=== PATIENT | female | born 2000 | race Caucasian/White ===

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

== ENCOUNTER 2021-01-07 22:24 | Emergency (ER) | payer OTHER ==
[~2021-01-07] VITALS: Ht 162.6 cm; Wt 82.8 kg
[~2021-01-07 22:24] MED LIST: ALBU17IN INH; ALBU83IN INH; CEFD1CAP8 PO; PRED20TA PO
[2021-01-07] MEDS ORDERED: ARNU1INH3 (22:40)
[2021-01-07] MEDS ORDERED: PRED10TA2 (22:40)
[2021-01-07] MEDS ORDERED: ALBU8.5H (22:40)
[2021-01-07] MEDS ORDERED: MONT10TA10 (22:40)
[2021-01-07] MEDS ORDERED: LEVALBUTEROL 1.25 MG/0.5 ML CONCENTRATE NEB NEB PRN (23:35)
[2021-01-07] MEDS ORDERED: methylPREDNISolone 125MG 2ML VIAL IV ONE (23:35)
[2021-01-08 00:42] LABS: BASO # 0.2 10^3/uL (0.0-0.2); BASO % 0.9 % (0.0-1.0); EOS # 1.9 10^3/uL (0.0-0.5); EOS % 9.7 % (0.0-3.0); HEMATOCRIT 45.6 % (36.0-47.0); HEMOGLOBIN 14.8 g/dl (12.0-15.5); LYMPH # 3.2 10^3/uL (1.5-5.0); MEAN CORPUSCULAR HEMOGLOBIN 27.6 pg (27.0-33.0); MEAN CORPUSCULAR HGB CONC 32.5 g/dl (32.0-36.5); MEAN CORPUSCULAR VOLUME 84.9 fl (80.0-96.0); MONO # 1.5 10^3/uL (0.0-0.8); MONO % 7.7 % (2.0-8.0); NEUTROPHILS # 12.8 10^3/uL (1.5-8.5); NEUTROPHILS % 64.9 % (36.0-66.0); PLATELET COUNT, AUTOMATED 441 10^3/uL (150-450); RED BLOOD COUNT 5.37 10^6/uL (4.00-5.40); VENOUS BASE EXCESS 0.3 (-2.0-2.0); VENOUS O2 SATURATION 81.5 % (60.0-80.0); VENOUS PARTIAL PRESSURE CO2 45.7 mmHg (38.0-50.0); VENOUS PARTIAL PRESSURE O2 43.5 mmHg (30.0-50.0); VENOUS PH 7.373 UNITS (7.330-7.430); VENOUS STANDARD HCO3 24.3 MEQ/L; VENOUS TOTAL CO2 27.4 MEQ/L (24.0-28.0); WHITE BLOOD COUNT 19.7 10^3/uL (4.0-10.0)
[2021-01-08] MEDS ORDERED: PRED20TA PO (01:23)
[2021-01-08] MEDS ORDERED: BREAMIS10 MC (01:23)
[2021-01-08 01:41] VITALS: BP 143/84
--- NOTE | 2021-01-08 09:33 | ECGEPIP ---
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
== END 2021-01-08 01:50 | disposition home or self-care (01) ==
LOC: M ED 22:24
DX: J45.901 Unspecified asthma with (acute) exacerbation (principal); R00.0 Tachycardia, unspecified; Z79.51 Long term (current) use of inhaled steroids
CPT/HCPCS: 80047; 82803; 83735; 84702; 85025; 93005; 94640; 96374; 99284; J2930

== ENCOUNTER 2022-08-05 11:08 | Emergency (ER) | payer OTHER ==
[~2022-08-05] VITALS: Ht 162.6 cm; Wt 72.2 kg
[~2022-08-05 11:08] MED LIST changes: +ALBU2.5V10 INH; +ALBU8.5H; -ALBU83IN INH; +ARNU1INH3; +BREAMIS10 MC; -CEFD1CAP8 PO; +CEFD300C41 PO; +MONT10TA97; +PRED10TA2
[2022-08-05] MEDS ORDERED: IPRA0.00 (11:15)
[2022-08-05] MEDS: COMBIVENT RESPIMAT 100-20MCG INHALER 4GM INH SCH (11:41)
[2022-08-05] MEDS ORDERED: predniSONE 20 MG TAB PO ONE (12:10)
[2022-08-05 13:22] VITALS: O2SAT 92
[2022-08-05 13:23] VITALS: BP 138/77
[2022-08-05] MEDS ORDERED: PRED20TA PO (13:28)
[2022-08-06] MEDS ORDERED: MAGNESIUM SULFATE 1GM/100ML D5W BAG (10MG/ML) As Ordered ONE (10:12)
[2022-08-06] MEDS ORDERED: MONT10TA97 PO (14:45)
[2022-08-06] MEDS ORDERED: IBUP-1764 PO (14:45)
== END 2022-08-05 13:53 | disposition home or self-care (01) ==
LOC: M ED 11:08
DX: J45.901 Unspecified asthma with (acute) exacerbation (principal); Z79.51 Long term (current) use of inhaled steroids; Z79.899 Other long term (current) drug therapy
CPT/HCPCS: 87486; 87581; 87633; 87798; 94640; 99284; J7512

== ENCOUNTER 2022-08-06 10:10 | Inpatient (IN) | payer OTHER ==
[~2022-08-06] VITALS: Ht 180.3 cm; Wt 75.1 kg
[2022-08-06] VITALS (7 sets, daily range): BP systolic 107–143; BP diastolic 52–93
[2022-08-06] MEDS: ENOXAPARIN 40MG/0.4ML SYRINGE (J1650 PER 10MG) SC SCH (09:00)
[~2022-08-06 10:10] MED LIST changes: +IPRA0.00
[2022-08-06] MEDS ORDERED: MAG SULF 1GM/100ML (MAG RUN) 1 GM in IV 1 EA IV ONE ×2 (10:15→10:30)
[2022-08-06] MEDS ORDERED: ALBUTEROL SULFATE 2.5 MG/0.5 ML INH NEB SOLN INH ONE ×2 (10:15→12:05)
[2022-08-06] MEDS ORDERED: IPRATROPIUM 0.02% SOLN 0.5MG 2.5ML NEB INH ONE ×2 (10:15→12:05)
[2022-08-06 10:54] LABS: BASO # 0.1 10^3/uL (0.0-0.2); BASO % 0.5 % (0.0-1.0); EOS # 0.4 10^3/uL (0.0-0.5); EOS % 1.6 % (0.0-3.0); HEMATOCRIT 44.5 % (36.0-47.0); HEMOGLOBIN 13.9 g/dl (12.0-15.5); LYMPH # 3.8 10^3/uL (1.5-5.0); LYMPH % 15.9 % (24.0-44.0); MEAN CORPUSCULAR HEMOGLOBIN 27.6 pg (27.0-33.0); MEAN CORPUSCULAR HGB CONC 31.2 g/dl (32.0-36.5); MEAN CORPUSCULAR VOLUME 88.3 fl (80.0-96.0); MONO % 8.7 % (2.0-8.0); NEUTROPHILS # 17.4 10^3/uL (1.5-8.5); NEUTROPHILS % 72.8 % (36.0-66.0); PLATELET COUNT, AUTOMATED 557 10^3/uL (150-450); RED BLOOD COUNT 5.04 10^6/uL (4.00-5.40); WHITE BLOOD COUNT 23.9 10^3/uL (4.0-10.0)
[2022-08-06 10:56] LABS: MONO # 2.1 10^3/uL (0.0-0.8)
[2022-08-06 11:25] LABS: HCG, SERUM QUALITATIVE NEGATIVE (NEGATIVE)
[2022-08-06 11:33] LABS: ALBUMIN 3.8 GM/DL (3.2-5.2); ALT/SGPT 27 U/L (12-78); BILIRUBIN,DIRECT < 0.1 MG/DL (0.0-0.2); BILIRUBIN,TOTAL 0.2 MG/DL (0.2-1.0); BLOOD UREA NITROGEN 12 MG/DL (7-18); CALCIUM LEVEL 8.9 MG/DL (8.5-10.1); CARBON DIOXIDE LEVEL 29 MEQ/L (21-32); CHLORIDE LEVEL 109 MEQ/L (98-107); GLOMERULAR FILTRATION RATE > 60.0 (>60); GLUCOSE, FASTING 137 MG/DL (70-100); POTASSIUM SERUM 3.9 MEQ/L (3.5-5.1); SODIUM LEVEL 142 MEQ/L (136-145); TOTAL PROTEIN 7.4 GM/DL (6.4-8.2)
[2022-08-06] MEDS ORDERED: KETOROLAC 30 MG/ML 1ML VIAL IV ONE (11:35)
[2022-08-06] MEDS ORDERED: NS 500 ML IV ONE (11:50)
[2022-08-06 11:58] LABS: ABG BASE EXCESS -4.2 (-2.0-2.0); ABG HCO3 23.2 MEQ/L (22.0-26.0); ABG O2 SATURATION 98.8 % (95.0-99.0); ABG PARTIAL PRESSURE CO2 51.8 mmHg (35.0-45.0); ABG PARTIAL PRESSURE O2 136.3 mmHg (75.0-100.0); ABG TOTAL CO2 24.8 MEQ/L (22.0-29.0); ABG pH (ARTERIAL) 7.269 UNITS (7.350-7.450)
[2022-08-06] MEDS ORDERED: MIDAZOLAM INJ 2MG/2ML VIAL (J2250 PER 1MG) IV STA (12:04)
[2022-08-06] MEDS ORDERED: IPRATROPIUM 0.5MG/ALBUTEROL 2.5MG INH SOL UD 3ML (DUONEB) As Ordered ONE (12:07)
[2022-08-06] MEDS ORDERED: AZITHROMYCIN INJ 500 MG, VIAL MATE ADAPTER 1 EACH in D5W 250 ML IV ONE (12:10)
[2022-08-06] MEDS ORDERED: cefTRIAXone SOD 2 GM in D5W MINI-BAG PLUS 50 ML IV ONE (12:10)
[2022-08-06] MEDS: PANTOPRAZOLE 40MG VIAL IV SCH (14:38)
[2022-08-06] MEDS: methylPREDNISolone 125MG 2ML VIAL IV SCH ×2 (14:39→21:52)
[2022-08-06] MEDS ORDERED: IBUP-1764 PO (14:45)
[2022-08-06] MEDS ORDERED: MONT10TA97 PO (14:45)
[2022-08-06] MEDS ORDERED: HOME MED LIST COMPLETE! XX SCH (14:50)
[2022-08-06] MEDS: KCL 20MEQ IN D5/0.45NS 1000ML 1,000 ML IV SCH (15:14)
[2022-08-06] MEDS: IPRATROPIUM 0.5MG/ALBUTEROL 2.5MG INH SOL UD 3ML (DUONEB) NEB SCH ×2 (15:47→19:51)
[2022-08-06 16:09] LABS: ABG HCO3 22.2 MEQ/L (22.0-26.0); ABG O2 SATURATION 98.8 % (95.0-99.0); ABG PARTIAL PRESSURE CO2 45.2 mmHg (35.0-45.0); ABG PARTIAL PRESSURE O2 128.5 mmHg (75.0-100.0); ABG STANDARD HCO3 21.2 MEQ/L (22.0-26.0); ABG TOTAL CO2 23.6 MEQ/L (22.0-29.0)
[2022-08-06] MEDS ORDERED: ALBUTEROL SULFATE 2.5 MG/0.5 ML INH NEB SOLN NEB PRN (16:40)
[2022-08-06 19:24] LABS: ABG BASE EXCESS -5.8 (-2.0-2.0); ABG HCO3 18.7 MEQ/L (22.0-26.0); ABG O2 SATURATION 97.3 % (95.0-99.0); ABG PARTIAL PRESSURE CO2 33.7 mmHg (35.0-45.0); ABG PARTIAL PRESSURE O2 87.2 mmHg (75.0-100.0); ABG STANDARD HCO3 19.7 MEQ/L (22.0-26.0); ABG TOTAL CO2 19.7 MEQ/L (22.0-29.0); ABG pH (ARTERIAL) 7.361 UNITS (7.350-7.450)
[2022-08-06] MEDS ORDERED: ALPRAZolam 0.25 MG TAB PO ONE (20:20)
[2022-08-07] VITALS (9 sets, daily range): BP systolic 110–142; BP diastolic 52–86; O2SAT 96
[2022-08-07 05:08] LABS: HEMATOCRIT 36.5 % (36.0-47.0); MEAN CORPUSCULAR HEMOGLOBIN 27.9 pg (27.0-33.0); MEAN CORPUSCULAR HGB CONC 32.9 g/dl (32.0-36.5); MEAN CORPUSCULAR VOLUME 84.9 fl (80.0-96.0); WHITE BLOOD COUNT 15.2 10^3/uL (4.0-10.0)
[2022-08-07 05:10] LABS: PLATELET COUNT, AUTOMATED 440 10^3/uL (150-450)
[2022-08-07 05:35] LABS: ABG BASE EXCESS -0.3 (-2.0-2.0); ABG HCO3 25.4 MEQ/L (22.0-26.0); ABG O2 SATURATION 98.1 % (95.0-99.0); ABG PARTIAL PRESSURE CO2 45.3 mmHg (35.0-45.0); ABG PARTIAL PRESSURE O2 105.4 mmHg (75.0-100.0); ABG STANDARD HCO3 24.3 MEQ/L (22.0-26.0); ABG TOTAL CO2 26.8 MEQ/L (22.0-29.0); ABG pH (ARTERIAL) 7.366 UNITS (7.350-7.450)
[2022-08-07 05:39] LABS: ALBUMIN 3.2 GM/DL (3.2-5.2); ALT/SGPT 18 U/L (12-78); BILIRUBIN,TOTAL 0.2 MG/DL (0.2-1.0); BLOOD UREA NITROGEN 9 MG/DL (7-18); CALCIUM LEVEL 8.8 MG/DL (8.5-10.1); CARBON DIOXIDE LEVEL 26 MEQ/L (21-32); CHLORIDE LEVEL 110 MEQ/L (98-107); CREATININE FOR GFR 0.58 MG/DL (0.55-1.30); GLOMERULAR FILTRATION RATE > 60.0 (>60); GLUCOSE, FASTING 142 MG/DL (70-100); POTASSIUM SERUM 4.4 MEQ/L (3.5-5.1); SODIUM LEVEL 140 MEQ/L (136-145); TOTAL PROTEIN 6.5 GM/DL (6.4-8.2)
[2022-08-07] MEDS: methylPREDNISolone 125MG 2ML VIAL IV SCH ×2 (05:40→14:03)
[2022-08-07] MEDS: KCL 20MEQ IN D5/0.45NS 1000ML 1,000 ML IV SCH (05:40)
[2022-08-07] MEDS: IPRATROPIUM 0.5MG/ALBUTEROL 2.5MG INH SOL UD 3ML (DUONEB) NEB SCH ×3 (07:32→15:39)
[2022-08-07] MEDS: PANTOPRAZOLE 40MG VIAL IV SCH (08:19)
[2022-08-07] MEDS: ENOXAPARIN 40MG/0.4ML SYRINGE (J1650 PER 10MG) SC SCH (08:19)
[2022-08-07] MEDS: SYMBICORT 160/4.5MCG INHALER 6GM INH SCH ×2 (11:24→19:10)
[2022-08-07] MEDS ORDERED: cefTRIAXone SOD 1 GM in D5W MINI-BAG PLUS 50 ML IV SCH (13:00)
[2022-08-07] MEDS ORDERED: AZITHROMYCIN INJ 500 MG, VIAL MATE ADAPTER 1 EACH in NS 250 ML IV SCH (14:00)
[2022-08-07] MEDS ORDERED: LEVALBUTEROL 1.25 MG/0.5 ML CONCENTRATE NEB INH PRN (16:15)
[2022-08-07] MEDS ORDERED: LEVALBUTEROL 1.25 MG/0.5 ML CONCENTRATE NEB NEB SCH (20:00)
[2022-08-07] MEDS ORDERED: MONTELUKAST 10 MG TAB PO SCH (21:00)
== END 2022-08-07 19:53 | disposition home or self-care (01) | DRG 141 ==
LOC: M ED 10:10 → EDBD 10:10 → M ED INP 13:18 → ENRESERV 13:35 → M ICU 16:23
PROVIDERS: ADMIT Internal Medicine Pulmonary Disease; ATTEND Internal Medicine Pulmonary Disease
DX: J45.901 Unspecified asthma with (acute) exacerbation (principal); J96.02 Acute respiratory failure with hypercapnia; Z20.822 Contact with and (suspected) exposure to COVID-19; Z87.891 Personal history of nicotine dependence; J18.9 Pneumonia, unspecified organism; E87.20 Acidosis, unspecified; Z91.198 Patient's noncompliance with other medical treatment and regimen for other reason; Z79.899 Other long term (current) drug therapy

== ENCOUNTER → 2022-08-16 | Outpatient (REF) | payer OTHER ==
[~2022-08-16] MED LIST changes: +IBUP-1764 PO; +MONT10TA97 PO
[2022-08-16 18:39] LABS: ALBUMIN 3.6 GM/DL (3.2-5.2); ALT/SGPT 26 U/L (12-78); BILIRUBIN,TOTAL 0.2 MG/DL (0.2-1.0); BLOOD UREA NITROGEN 18 MG/DL (7-18); CALCIUM LEVEL 9.1 MG/DL (8.5-10.1); CARBON DIOXIDE LEVEL 30 MEQ/L (21-32); CHLORIDE LEVEL 103 MEQ/L (98-107); CREATININE FOR GFR 0.65 MG/DL (0.55-1.30); GLOMERULAR FILTRATION RATE > 60.0 (>60); GLUCOSE, FASTING 75 MG/DL (70-100); POTASSIUM SERUM 4.8 MEQ/L (3.5-5.1); SODIUM LEVEL 137 MEQ/L (136-145); TOTAL PROTEIN 6.8 GM/DL (6.4-8.2)
[2022-08-16 19:07] LABS: TOTAL 25(OH) VITAMIN D 15.7 NG/ML (30.0-100.0)
== END ==
LOC: M LAB REF 16:54
PROVIDERS: ATTEND Family Medicine Addiction Medicine
DX: F32.A Depression, unspecified (principal)

== ENCOUNTER 2022-12-04 02:07 | Inpatient (IN) | payer OTHER ==
[~2022-12-04] VITALS: Ht 162.6 cm; Wt 74.2 kg
[~2022-12-04 02:07] MED LIST changes: -ALBU8.5H; +ALBU8.5H PO
[2022-12-04] MEDS ORDERED: NS 1,000 ML IV ONE (02:25)
[2022-12-04] MEDS ORDERED: MUCI1TAB16 PO (02:28)
[2022-12-04] MEDS ORDERED: IPRATROPIUM 0.02% SOLN 0.5MG 2.5ML NEB INH ONE (02:45)
[2022-12-04] MEDS ORDERED: ALBUTEROL SULFATE 2.5MG/0.5ML INH NEB SOLN INH ONE ×2 (02:45→03:20)
[2022-12-04] MEDS ORDERED: methylPREDNISolone 125MG 2ML VIAL IV ONE (02:45)
[2022-12-04] MEDS ORDERED: MAG SULF 1GM/100ML (MAG RUN) 1 GM in IV 1 EA IV ONE (02:45)
[2022-12-04] MEDS ORDERED: BUDESONIDE 0.5 MG/2 ML INHALATION SUSPENSION INH ONE (02:45)
[2022-12-04 02:59] LABS: BASO # 0.3 10^3/uL (0.0-0.2); BASO % 1.4 % (0.0-1.0); EOS # 2.7 10^3/uL (0.0-0.5); EOS % 14.4 % (0.0-3.0); HEMATOCRIT 40.9 % (36.0-47.0); HEMOGLOBIN 13.2 g/dl (12.0-15.5); LYMPH # 2.7 10^3/uL (1.5-5.0); LYMPH % 14.2 % (24.0-44.0); MEAN CORPUSCULAR HEMOGLOBIN 28.3 pg (27.0-33.0); MEAN CORPUSCULAR HGB CONC 32.3 g/dl (32.0-36.5); MEAN CORPUSCULAR VOLUME 87.6 fl (80.0-96.0); MONO % 5.1 % (2.0-8.0); NEUTROPHILS % 64.1 % (36.0-66.0); PLATELET COUNT, AUTOMATED 467 10^3/uL (150-450); RED BLOOD COUNT 4.67 10^6/uL (4.00-5.40); WHITE BLOOD COUNT 18.7 10^3/uL (4.0-10.0)
[2022-12-04 03:24] LABS: ETHYL ALCOHOL (ETHANOL) 0.005 % (0.000-0.010)
[2022-12-04 03:25] LABS: ACETAMINOPHEN LEVEL < 2.0 UG/ML (10.0-20.0); CPK CREATINE PHOSPHOKINASE 82 U/L (34-145)
[2022-12-04 03:26] LABS: SALICYLATE LEVEL < 3.0 MG/DL (<30)
[2022-12-04 03:49] LABS: ALBUMIN 3.7 G/DL (3.2-5.2); ALKALINE PHOSPHATASE 90 U/L (46-116); ALT/SGPT 18 U/L (7.0-40); AST/SGOT 18 U/L (<34); BILIRUBIN,DIRECT 0.1 MG/DL (<0.4); BILIRUBIN,TOTAL 0.4 MG/DL (0.3-1.2); BLOOD UREA NITROGEN 6 MG/DL (9-23); CALCIUM LEVEL 8.4 MG/DL (8.5-10.1); CARBON DIOXIDE LEVEL 23 MMOL/L (20-31); CHLORIDE LEVEL 107 MMOL/L (98-107); CREATININE FOR GFR 0.67 MG/DL (0.55-1.30); GLOMERULAR FILTRATION RATE > 60.0 (>60); GLUCOSE, FASTING 216 MG/DL (60-100); POTASSIUM SERUM 4.1 MMOL/L (3.5-5.1); SODIUM LEVEL 139 MMOL/L (136-145); THYROID STIMULATING HORMONE 2.259 uIU/ML (0.55-4.78); TOTAL PROTEIN 6.3 G/DL (5.7-8.2)
[2022-12-04 03:53] LABS: HCG, SERUM QUALITATIVE NEGATIVE (NEGATIVE)
[2022-12-04] MEDS ORDERED: cefTRIAXone SOD 2 GM in D5W MINI-BAG PLUS 50 ML IV ONE (03:55)
[2022-12-04] MEDS ORDERED: AZITHROMYCIN INJ 500 MG, VIAL MATE ADAPTER 1 EACH in NS 250 ML IV ONE (03:55)
[2022-12-04] MEDS ORDERED: HOME MED LIST COMPLETE! XX SCH (05:15)
[2022-12-04] MEDS ORDERED: ALBUTEROL SULFATE 2.5MG/0.5ML INH NEB SOLN NEB PRN (05:15)
[2022-12-04 05:21] LABS: BARBITURATES URINE NEGATIVE (NEGATIVE); BENZODIAZEPINES URINE NEGATIVE (NEGATIVE); COCAINE METABOLITE URINE NEGATIVE (NEGATIVE); METHADONE URINE NEGATIVE (NEGATIVE); OPIATES URINE NEGATIVE (NEGATIVE); PHENCYCLIDINE URINE NEGATIVE (NEGATIVE)
[2022-12-04 05:23] LABS: AMPHETAMINES LEVEL URINE POSITIVE (NEGATIVE); CANNABINOIDS URINE POSITIVE (NEGATIVE)
[2022-12-04 06:00] VITALS: BP 119/64
[2022-12-04 06:30] VITALS: BP 124/62
[2022-12-04] MEDS: IPRATROPIUM 0.5MG/ALBUTEROL 2.5MG INH SOL UD 3ML (DUONEB) NEB SCH ×3 (07:29→20:00)
[2022-12-04] MEDS ORDERED: PANTOPRAZOLE 40MG VIAL IV SCH (09:00)
[2022-12-04 09:04] LABS: ABG BASE EXCESS -3.8 (-2.0-2.0); ABG HCO3 20.1 MEQ/L (22.0-26.0); ABG O2 SATURATION 93.1 % (95.0-99.0); ABG PARTIAL PRESSURE CO2 33.2 mmHg (35.0-45.0); ABG PARTIAL PRESSURE O2 58.9 mmHg (75.0-100.0); ABG STANDARD HCO3 21.2 MEQ/L (22.0-26.0); ABG TOTAL CO2 21.1 MEQ/L (22.0-29.0)
[2022-12-04] MEDS: methylPREDNISolone 125MG 2ML VIAL IV SCH ×3 (09:04→20:15)
[2022-12-04] MEDS: ENOXAPARIN 40MG/0.4ML SYRINGE (J1650 PER 10MG) SC SCH (09:04)
[2022-12-04] MEDS ORDERED: PIPERACILLIN/TAZOBACTAM SOD 4.5 GM in D5W MINI-BAG PLUS 50 ML IV SCH (10:00)
[2022-12-04 10:11] VITALS: BP 112/82
[2022-12-04] MEDS: ADVAIR HFA 230/21MCG INHALER INH SCH ×2 (11:13→19:51)
[2022-12-04 14:00] VITALS: BP 110/61
[2022-12-04 15:30] VITALS: BP 134/73
[2022-12-04] MEDS ORDERED: LevoFLOXacin 500 MG TABLET PO SCH (18:00)
[2022-12-04] MEDS ORDERED: guaiFENesin DM LIQ 10ML UD PO PRN (18:15)
[2022-12-04] MEDS ORDERED: FIORICET TAB PO PRN (18:20)
[2022-12-04] MEDS ORDERED: guaiFENesin DM LIQ 10ML UD PO ONE (19:00)
[2022-12-04] MEDS ORDERED: METOCLOPRAMIDE INJ 10MG/2ML VIAL IV ONE (19:00)
[2022-12-04] MEDS ORDERED: KETOROLAC 30 MG/ML 1ML VIAL IV ONE (19:00)
[2022-12-04 20:00] VITALS: BP 134/73
[2022-12-04] MEDS ORDERED: RAMELTEON 8 MG TAB (ROZEREM) PO PRN (20:20)
[2022-12-04] MEDS ORDERED: hydrOXYzine 50 MG TAB PO ONE (20:20)
[2022-12-04] MEDS ORDERED: MONTELUKAST 10 MG TAB PO SCH (21:00)
[2022-12-05] MEDS: IPRATROPIUM 0.5MG/ALBUTEROL 2.5MG INH SOL UD 3ML (DUONEB) NEB SCH ×3 (02:41→13:20)
[2022-12-05] MEDS: methylPREDNISolone 125MG 2ML VIAL IV SCH ×3 (03:42→13:14)
[2022-12-05 06:00] VITALS: BP 114/62
[2022-12-05] MEDS: ADVAIR HFA 230/21MCG INHALER INH SCH (07:45)
[2022-12-05] MEDS ORDERED: LEVO1TAB39 PO (08:05)
[2022-12-05] MEDS ORDERED: ALBU2.5V10 INH (08:05)
[2022-12-05] MEDS ORDERED: ADVA230A INH (08:05)
[2022-12-05] MEDS ORDERED: ALBU6.7H6 INH (08:05)
[2022-12-05] MEDS ORDERED: PRED10TA2 PO (08:05)
[2022-12-05] MEDS ORDERED: PANTOPRAZOLE 40MG TAB (PROTONIX) PO SCH (09:00)
[2022-12-05] MEDS: ENOXAPARIN 40MG/0.4ML SYRINGE (J1650 PER 10MG) SC SCH (09:14)
[2022-12-05 13:25] VITALS: BP 138/76
== END 2022-12-05 13:42 | disposition left against medical advice (07) | DRG 141 ==
LOC: M ED 02:07 → M ED INP 05:11 → M ICU 06:25 → M MSPAV 15:32
PROVIDERS: ADMIT Internal Medicine Pulmonary Disease; ATTEND General Practice
DX: J45.901 Unspecified asthma with (acute) exacerbation (principal); J96.01 Acute respiratory failure with hypoxia; J96.02 Acute respiratory failure with hypercapnia; F15.10 Other stimulant abuse, uncomplicated; D72.829 Elevated white blood cell count, unspecified; Z79.899 Other long term (current) drug therapy

== ENCOUNTER 2024-08-05 07:13 | Emergency (ER) | payer OTHER ==
[~2024-08-05] VITALS: Ht 162.6 cm; Wt 69.4 kg
[~2024-08-05 07:13] MED LIST changes: +ADVA230A INH; +ALBU6.7H6 INH; +CEFD1CAP9 PO; -CEFD300C41 PO; +LEVO1TAB39 PO; +MUCI1TAB16 PO; +PRED10TA2 PO
[2024-08-05] MEDS: IPRATROPIUM 0.5MG/ALBUTEROL 2.5MG INH SOL UD 3ML (DUONEB) NEB PRN (07:58)
[2024-08-05 08:05] LABS: VENOUS BASE EXCESS -5.9 (-2.0-2.0); VENOUS HCO3 21.7 MMOL/L (23.0-27.0); VENOUS O2 SATURATION 53.9 % (60.0-80.0); VENOUS PARTIAL PRESSURE CO2 49.9 mmHg (38.0-50.0); VENOUS PH 7.256 UNITS (7.330-7.430); VENOUS STANDARD HCO3 18.7 MMOL/L; VENOUS TOTAL CO2 23.2 MMOL/L (24.0-28.0)
[2024-08-05 08:08] LABS: BASO % 0.5 % (0.0-1.0); EOS % 0.1 % (0.0-3.0); HEMATOCRIT 47.1 % (36.0-47.0); HEMOGLOBIN 15.5 g/dl (12.0-15.5); LYMPH # 0.8 10^3/uL (1.5-5.0); LYMPH % 9.9 % (24.0-44.0); MEAN CORPUSCULAR HEMOGLOBIN 28.5 pg (27.0-33.0); MEAN CORPUSCULAR HGB CONC 32.9 g/dl (32.0-36.5); MEAN CORPUSCULAR VOLUME 86.7 fl (80.0-96.0); MONO # 0.2 10^3/uL (0.0-0.8); MONO % 1.8 % (2.0-8.0); NEUTROPHILS # 7.3 10^3/uL (1.5-8.5); NEUTROPHILS % 87.3 % (36.0-66.0); PLATELET COUNT, AUTOMATED 366 10^3/uL (150-450); RED BLOOD COUNT 5.43 10^6/uL (4.00-5.40); WHITE BLOOD COUNT 8.4 10^3/uL (4.0-10.0)
[2024-08-05] MEDS: methylPREDNISolone 125MG 2ML VIAL IV ONE (08:29)
[2024-08-05 08:33] LABS: CK-MB VALUE MASS 2.2 NG/ML (<3.6)
[2024-08-05 08:35] LABS: ALKALINE PHOSPHATASE 101 U/L (46-116); ALT/SGPT 22 U/L (7.0-40); AST/SGOT 11 U/L (<34); BILIRUBIN,DIRECT 0.2 MG/DL (<0.4); BILIRUBIN,TOTAL 0.5 MG/DL (0.3-1.2); BLOOD UREA NITROGEN 8 MG/DL (9-23); CALCIUM LEVEL 9.9 MG/DL (8.5-10.1); CARBON DIOXIDE LEVEL 25 MMOL/L (20-31); CHLORIDE LEVEL 111 MMOL/L (98-107); CREATININE FOR GFR 0.64 MG/DL (0.55-1.30); GLOMERULAR FILTRATION RATE > 60.0 (>60); GLUCOSE, FASTING 125 MG/DL (60-100); POTASSIUM SERUM 4.8 MMOL/L (3.5-5.1); SODIUM LEVEL 141 MMOL/L (136-145); TOTAL PROTEIN 7.5 G/DL (5.7-8.2)
[2024-08-05 08:37] LABS: THYROID STIMULATING HORMONE 0.696 uIU/ML (0.55-4.78); THYROXINE (T4) 8.3 UG/DL (4.5-10.9)
[2024-08-05 08:39] LABS: CPK CREATINE PHOSPHOKINASE 58 U/L (34-145); MB/CK RELATIVE INDEX 3.79 (< OR =4)
[2024-08-05 08:56] LABS: HCG, SERUM QUALITATIVE NEGATIVE (NEGATIVE)
[2024-08-05] MEDS: MAG SULF 1GM/100ML (MAG RUN) 1 GM in IV 1 EA IV SCH (10:19)
[2024-08-05] MEDS ORDERED: IPRATROPIUM 0.5MG/ALBUTEROL 2.5MG INH SOL UD 3ML (DUONEB) NEB PRN (10:25)
[2024-08-05 11:37] VITALS: O2SAT 91
[2024-08-05] MEDS ORDERED: ADVA115A INH (12:01)
[2024-08-05] MEDS ORDERED: PRED10TA2 PO (12:01)
[2024-08-05 12:36] VITALS: BP 118/57; TEMP 97.9; O2SAT 94
== END 2024-08-05 12:39 | disposition home or self-care (01) ==
LOC: M ED 07:13
DX: J45.901 Unspecified asthma with (acute) exacerbation (principal); I51.7 Cardiomegaly; F17.200 Nicotine dependence, unspecified, uncomplicated; F15.10 Other stimulant abuse, uncomplicated; Z79.52 Long term (current) use of systemic steroids; Z79.899 Other long term (current) drug therapy
CPT/HCPCS: 71045; 80048; 80076; 82550; 82553; 82803; 83605; 84436; 84443; 84484; 84703; 85025; 87486; 87581; 87633; 87798; 93005; 93041; 94640; 94760; 96365; 96375; 99285; J2919; J3475

== ENCOUNTER 2024-09-28 21:38 | Emergency (ER) | payer OTHER ==
[~2024-09-28] VITALS: Ht 160 cm; Wt 70.5 kg
[~2024-09-28 21:38] MED LIST changes: +ADVA115A INH
[2024-09-28 22:07] LABS: VENOUS BASE EXCESS -2.5 (-2.0-2.0); VENOUS HCO3 25.8 MMOL/L (23.0-27.0); VENOUS O2 SATURATION 55.3 % (60.0-80.0); VENOUS PARTIAL PRESSURE CO2 58.6 mmHg (38.0-50.0); VENOUS PARTIAL PRESSURE O2 29.6 mmHg (30.0-50.0); VENOUS PH 7.262 UNITS (7.330-7.430); VENOUS STANDARD HCO3 21.3 MMOL/L; VENOUS TOTAL CO2 27.6 MMOL/L (24.0-28.0)
[2024-09-28] MEDS: methylPREDNISolone 125MG 2ML VIAL IV ONE (22:07)
[2024-09-28 22:13] LABS: BASO # 0.1 10^3/uL (0.0-0.2); BASO % 0.9 % (0.0-1.0); EOS # 1.3 10^3/uL (0.0-0.5); EOS % 8.1 % (0.0-3.0); HEMATOCRIT 35.7 % (36.0-47.0); HEMOGLOBIN 11.7 g/dl (12.0-15.5); LYMPH # 1.6 10^3/uL (1.5-5.0); LYMPH % 9.8 % (24.0-44.0); MEAN CORPUSCULAR HGB CONC 32.8 g/dl (32.0-36.5); MEAN CORPUSCULAR VOLUME 88.6 fl (80.0-96.0); MONO # 0.7 10^3/uL (0.0-0.8); MONO % 4.4 % (2.0-8.0); NEUTROPHILS # 12.1 10^3/uL (1.5-8.5); NEUTROPHILS % 76.1 % (36.0-66.0); PLATELET COUNT, AUTOMATED 294 10^3/uL (150-450); RED BLOOD COUNT 4.03 10^6/uL (4.00-5.40); WHITE BLOOD COUNT 15.9 10^3/uL (4.0-10.0)
[2024-09-28] MEDS: IPRATROPIUM 0.5MG/ALBUTEROL 2.5MG INH SOL UD 3ML (DUONEB) NEB ONE (22:16)
[2024-09-28 22:38] LABS: ALBUMIN 3.4 G/DL (3.2-5.2); ALKALINE PHOSPHATASE 88 U/L (35-104); ALT/SGPT 14 U/L (7.0-40); AST/SGOT 13 U/L (<34); BILIRUBIN,DIRECT 0.2 MG/DL (<0.4); BILIRUBIN,TOTAL 0.5 MG/DL (0.3-1.2); BLOOD UREA NITROGEN 13 MG/DL (9-23); CALCIUM LEVEL 8.9 MG/DL (8.5-10.1); CARBON DIOXIDE LEVEL 27 MMOL/L (20-31); CHLORIDE LEVEL 107 MMOL/L (98-107); CREATININE FOR GFR 0.74 MG/DL (0.55-1.30); GLOMERULAR FILTRATION RATE > 60.0 (>60); GLUCOSE, FASTING 93 MG/DL (60-100); POTASSIUM SERUM 3.8 MMOL/L (3.5-5.1); SODIUM LEVEL 143 MMOL/L (136-145); TOTAL PROTEIN 6.7 G/DL (5.7-8.2)
[2024-09-28 22:40] LABS: THYROID STIMULATING HORMONE 2.089 uIU/ML (0.55-4.78); THYROXINE (T4) 8.8 UG/DL (4.5-10.9)
[2024-09-28] MEDS ORDERED: PRED10TA2 PO (23:10)
[2024-09-28] MEDS ORDERED: ALBU8.5H INH (23:10)
[2024-09-28 23:18] VITALS: BP 127/71; TEMP 97.7; O2SAT 93
== END 2024-09-28 23:20 | disposition home or self-care (01) ==
LOC: EDBD 21:38 → M ED 21:38
DX: J45.901 Unspecified asthma with (acute) exacerbation (principal); I47.11 Inappropriate sinus tachycardia, so stated; I51.7 Cardiomegaly; I45.19 Other right bundle-branch block; F41.9 Anxiety disorder, unspecified; F32.9 Major depressive disorder, single episode, unspecified; Z79.52 Long term (current) use of systemic steroids; Z79.899 Other long term (current) drug therapy
CPT/HCPCS: 71045; 80048; 80076; 82803; 84436; 84443; 85025; 87486; 87581; 87633; 87798; 93005; 93041; 94640; 94760; 96374; 99285; J2919

== ENCOUNTER 2024-10-26 04:54 | Emergency (ER) | payer OTHER ==
[~2024-10-26] VITALS: Ht 162.6 cm; Wt 70.5 kg
[~2024-10-26 04:54] MED LIST changes: +ALBU8.5H INH
[2024-10-26] MEDS: ALBUTEROL SULFATE 2.5MG/0.5ML INH NEB SOLN NEB ONE (07:17)
[2024-10-26] MEDS: IPRATROPIUM 0.5MG/ALBUTEROL 2.5MG INH SOL UD 3ML (DUONEB) NEB PRN (07:38)
[2024-10-26 07:39] LABS: VENOUS BASE EXCESS -1.7 (-2.0-2.0); VENOUS O2 SATURATION 98.8 % (60.0-80.0); VENOUS PARTIAL PRESSURE CO2 44.1 mmHg (38.0-50.0); VENOUS PARTIAL PRESSURE O2 130.8 mmHg (30.0-50.0); VENOUS PH 7.353 UNITS (7.330-7.430); VENOUS STANDARD HCO3 23.1 MMOL/L; VENOUS TOTAL CO2 25.3 MMOL/L (24.0-28.0)
[2024-10-26] MEDS: dexAMETHasone 20MG/5ML VIAL IV ONE (07:52)
[2024-10-26 07:57] LABS: BASO # 0.2 10^3/uL (0.0-0.2); BASO % 1.4 % (0.0-1.0); EOS # 2.2 10^3/uL (0.0-0.5); HEMOGLOBIN 13.7 g/dl (12.0-15.5); LYMPH # 2.7 10^3/uL (1.5-5.0); LYMPH % 24.7 % (24.0-44.0); MEAN CORPUSCULAR HGB CONC 33.4 g/dl (32.0-36.5); MEAN CORPUSCULAR VOLUME 86.7 fl (80.0-96.0); MONO # 0.8 10^3/uL (0.0-0.8); MONO % 6.8 % (2.0-8.0); NEUTROPHILS # 5.1 10^3/uL (1.5-8.5); NEUTROPHILS % 46.6 % (36.0-66.0); PLATELET COUNT, AUTOMATED 329 10^3/uL (150-450); RED BLOOD COUNT 4.73 10^6/uL (4.00-5.40)
[2024-10-26 08:11] LABS: BLOOD UREA NITROGEN 7 MG/DL (9-23); CALCIUM LEVEL 8.7 MG/DL (8.5-10.1); CARBON DIOXIDE LEVEL 27 MMOL/L (20-31); CHLORIDE LEVEL 108 MMOL/L (98-107); CREATININE FOR GFR 0.68 MG/DL (0.55-1.30); GLOMERULAR FILTRATION RATE > 60.0 (>60); GLUCOSE, FASTING 107 MG/DL (60-100); POTASSIUM SERUM 3.7 MMOL/L (3.5-5.1); SODIUM LEVEL 144 MMOL/L (136-145)
[2024-10-26 08:19] LABS: EOS % 20.1 % (0.0-3.0)
[2024-10-26 10:41] VITALS: O2SAT 93
[2024-10-26] MEDS ORDERED: ADVA115A INH (11:06)
[2024-10-26] MEDS ORDERED: PRED20TA PO (11:12)
[2024-10-26 11:45] VITALS: BP 121/74; TEMP 99.2; O2SAT 92
== END 2024-10-26 12:27 | disposition home or self-care (01) ==
LOC: M ED 04:54
DX: J45.901 Unspecified asthma with (acute) exacerbation (principal); F17.200 Nicotine dependence, unspecified, uncomplicated; Z79.52 Long term (current) use of systemic steroids; Z79.899 Other long term (current) drug therapy
CPT/HCPCS: 71045; 80048; 82803; 85025; 87486; 87581; 87633; 87798; 93041; 94640; 94760; 96374; 99285; J1100

== ENCOUNTER 2025-04-21 03:45 | Emergency (ER) | payer OTHER ==
[~2025-04-21] VITALS: Ht 162.6 cm; Wt 77.3 kg
[2025-04-21] MEDS: IPRATROPIUM 0.5 MG/ALBUTEROL 2.5 MG INH SOL UD 3 ML NEB PRN (04:17)
[2025-04-21] MEDS: BUDESONIDE 0.5 MG/2 ML INHALATION SUSPENSION NEB ONE (04:17)
[2025-04-21] MEDS: MAG SULF 1GM/100ML (MAG RUN) 1 GM in IV 1 EA IV SCH (04:30)
[2025-04-21 04:44] LABS: BASO # 0.2 10^3/uL (0.0-0.2); BASO % 1.1 % (0.0-1.0); EOS # 2.5 10^3/uL (0.0-0.5); EOS % 18.1 % (0.0-3.0); LYMPH # 2.8 10^3/uL (1.5-5.0); LYMPH % 20.1 % (24.0-44.0); MONO # 1.0 10^3/uL (0.0-0.8); MONO % 7.2 % (2.0-8.0); NEUTROPHILS # 7.3 10^3/uL (1.5-8.5); NEUTROPHILS % 52.8 % (36.0-66.0); PLATELET COUNT, AUTOMATED 424 10^3/uL (150-450)
[2025-04-21 05:26] LABS: CALCIUM LEVEL 9.3 MG/DL (8.5-10.1); CARBON DIOXIDE LEVEL 30 MMOL/L (20-31); CHLORIDE LEVEL 106 MMOL/L (98-107); CREATININE FOR GFR 0.75 MG/DL (0.55-1.30); GLOMERULAR FILTRATION RATE > 90.0 (>60); POTASSIUM SERUM 4.1 MMOL/L (3.5-5.1); SODIUM LEVEL 146 MMOL/L (136-145)
[2025-04-21 08:00] VITALS: BP 119/61
[2025-04-21 08:13] VITALS: O2SAT 94
[2025-04-21] MEDS ORDERED: VENTAER INH (08:26)
[2025-04-21 08:33] VITALS: TEMP 98.1; O2SAT 95
== END 2025-04-21 08:38 | disposition home or self-care (01) ==
LOC: M ED 03:45
DX: J45.901 Unspecified asthma with (acute) exacerbation (principal); F12.10 Cannabis abuse, uncomplicated; Z79.52 Long term (current) use of systemic steroids; Z79.899 Other long term (current) drug therapy
CPT/HCPCS: 71045; 80048; 85025; 87486; 87581; 87633; 87798; 93041; 94640; 94760; 99285; J2919; J3475

== ENCOUNTER 2025-05-13 00:44 | Observation (INO) | payer OTHER ==
[~2025-05-13] VITALS: Ht 167.6 cm; Wt 54.5 kg
[~2025-05-13 00:44] MED LIST changes: -ALBU8.5H PO; +VENTAER INH
[2025-05-13] MEDS: IPRATROPIUM 0.5 MG/ALBUTEROL 2.5 MG INH SOL UD 3 ML NEB SCH ×2 (01:29→08:22)
[2025-05-13 01:44] LABS: BASO # 0.1 10^3/uL (0.0-0.2); BASO % 1.0 % (0.0-1.0); EOS # 1.5 10^3/uL (0.0-0.5); EOS % 12.2 % (0.0-3.0); LYMPH # 2.4 10^3/uL (1.5-5.0); LYMPH % 19.3 % (24.0-44.0); MONO # 0.8 10^3/uL (0.0-0.8); MONO % 6.4 % (2.0-8.0); NEUTROPHILS # 7.6 10^3/uL (1.5-8.5); NEUTROPHILS % 60.8 % (36.0-66.0); PLATELET COUNT, AUTOMATED 331 10^3/uL (150-450)
[2025-05-13 02:07] LABS: HCG, SERUM QUALITATIVE NEGATIVE (NEGATIVE)
[2025-05-13 02:08] LABS: CALCIUM LEVEL 8.6 MG/DL (8.5-10.1); CARBON DIOXIDE LEVEL 27 MMOL/L (20-31); CHLORIDE LEVEL 107 MMOL/L (98-107); CREATININE FOR GFR 0.79 MG/DL (0.55-1.30); GLOMERULAR FILTRATION RATE > 90.0 (>60); POTASSIUM SERUM 3.9 MMOL/L (3.5-5.1); SODIUM LEVEL 145 MMOL/L (136-145)
[2025-05-13] MEDS: MAG SULF 1GM/100ML (MAG RUN) 1 GM in IV 1 EA IV SCH (02:34)
[2025-05-13] MEDS: IPRATROPIUM 0.5 MG/ALBUTEROL 2.5 MG INH SOL UD 3 ML NEB ONE ×2 (04:28)
[2025-05-13 04:38] LABS: VENOUS BASE EXCESS -3.9 (-2.0-2.0); VENOUS HCO3 22.1 MMOL/L (23.0-27.0); VENOUS O2 SATURATION 93.5 % (60.0-80.0); VENOUS PARTIAL PRESSURE CO2 43.3 mmHg (38.0-50.0); VENOUS PARTIAL PRESSURE O2 67.5 mmHg (30.0-50.0); VENOUS PH 7.325 UNITS (7.330-7.430); VENOUS STANDARD HCO3 21.2 MMOL/L; VENOUS TOTAL CO2 23.4 MMOL/L (24.0-28.0)
[2025-05-13] MEDS ORDERED: IPRATROPIUM 0.5 MG/ALBUTEROL 2.5 MG INH SOL UD 3 ML NEB SCH (04:50)
[2025-05-13] MEDS ORDERED: ALBUTEROL SULFATE 2.5 MG/0.5 ML INH CONCENTRATE NEB SOLN NEB PRN (05:10)
[2025-05-13] MEDS ORDERED: ACETAMINOPHEN 325 MG TAB PO PRN (05:40)
[2025-05-13] MEDS: AZITHROMYCIN 250 MG TABLET PO ONE (05:57)
[2025-05-13 07:12] LABS: BASO # 0.0 10^3/uL (0.0-0.2); BASO % 0.4 % (0.0-1.0); EOS # 0.0 10^3/uL (0.0-0.5); EOS % 0.1 % (0.0-3.0); LYMPH # 0.3 10^3/uL (1.5-5.0); LYMPH % 2.4 % (24.0-44.0); MONO # 0.0 10^3/uL (0.0-0.8); MONO % 0.3 % (2.0-8.0); NEUTROPHILS # 10.7 10^3/uL (1.5-8.5); NEUTROPHILS % 96.4 % (36.0-66.0); PLATELET COUNT, AUTOMATED 305 10^3/uL (150-450)
[2025-05-13 07:13] VITALS: TEMP 97.4
[2025-05-13] MEDS ORDERED: BENA25CA4 PO ×2 (07:13)
[2025-05-13] MEDS ORDERED: FERR325T81 PO (07:13)
[2025-05-13] MEDS ORDERED: HOME MED LIST COMPLETE! XX SCH (07:15)
[2025-05-13 07:44] LABS: CALCIUM LEVEL 8.2 MG/DL (8.5-10.1); CARBON DIOXIDE LEVEL 22 MMOL/L (20-31); CHLORIDE LEVEL 107 MMOL/L (98-107); CREATININE FOR GFR 0.67 MG/DL (0.55-1.30); GLOMERULAR FILTRATION RATE > 90.0 (>60); POTASSIUM SERUM 3.6 MMOL/L (3.5-5.1); SODIUM LEVEL 142 MMOL/L (136-145)
[2025-05-13] MEDS: SYMBICORT 160/4.5MCG INHALER 6GM INH SCH (08:22)
[2025-05-13] MEDS: HEPARIN SOD 5000 UNITS/ML 1 ML VIAL/SYRINGE SQ SCH (08:36)
[2025-05-13] MEDS: MONTELUKAST 10 MG TAB PO SCH (08:36)
[2025-05-13 11:00] VITALS: BP 116/63
[2025-05-13 12:59] VITALS: O2SAT 93
[2025-05-14] MEDS ORDERED: AZITHROMYCIN 250 MG TABLET PO SCH (09:00)
== END 2025-05-13 12:55 | disposition left against medical advice (07) ==
LOC: M ED 00:44 → M ED INP 00:45 → INTOOBSV 05:38 → UNDOADMOB 05:38 → UNDODISOB 12:55
PROVIDERS: ADMIT Student in an Organized Health Care Education/Training Program; ATTEND Student in an Organized Health Care Education/Training Program
DX: J45.901 Unspecified asthma with (acute) exacerbation (principal); Z53.21 Procedure and treatment not carried out due to patient leaving prior to being seen by health care provider; F15.10 Other stimulant abuse, uncomplicated; D72.829 Elevated white blood cell count, unspecified; Z79.52 Long term (current) use of systemic steroids; Z79.51 Long term (current) use of inhaled steroids
CPT/HCPCS: 36415; 71045; 80048; 82803; 84145; 84703; 85025; 85379; 87040; 87486; 87581; 87633; 87798; 93005; 93970; 94640; 94760; 96372; 96374; 96376; 99285; J2919; J3475